=== PATIENT | male | born 1980 | race Caucasian/White ===

== ENCOUNTER 2018-09-27 07:38 | Emergency (ER) | payer OTHER ==
[~2018-09-27] VITALS: Ht 182.9 cm; Wt 104.3 kg
[~2018-09-27 07:38] MED LIST: CRUTCH USE; HYDACE5 PO; NAPR500 PO; NAPR550 PO; OXYACE5T PO; RXCYCL10 PO
[2018-09-27] MEDS ORDERED: IBUP600 PO (09:23)
[2018-09-27] MEDS ORDERED: Percocet 5-3251 EACH PO (09:23)
[2018-09-27] MEDS ORDERED: Cyclobenzaprine5 MG PO (09:23)
== END 2018-09-27 09:41 | disposition home or self-care (01) ==
LOC: ER 07:38
DX: M54.5 Low back pain (principal); Z88.8 Allergy status to other drugs, medicaments and biological substances; Z79.899 Other long term (current) drug therapy
CPT/HCPCS: 72100

== ENCOUNTER 2018-10-21 08:05 | Emergency (ER) | payer OTHER ==
[~2018-10-21] VITALS: Ht 182.9 cm; Wt 104.3 kg
[~2018-10-21 08:05] MED LIST changes: +Cyclobenzaprine5 MG PO; +IBUP600 PO; +Percocet 5-3251 EACH PO
[2018-10-21] MEDS ORDERED: AZIT250 PO (08:29)
[2018-10-21] MEDS ORDERED: SILVER SULFADIA50 G1 TOP (08:30)
== END 2018-10-21 09:44 | disposition home or self-care (01) ==
LOC: ER 08:05
DX: T24.532A Corrosion of first degree of left lower leg, initial encounter (principal); T25.512A Corrosion of first degree of left ankle, initial encounter; T25.511A Corrosion of first degree of right ankle, initial encounter; T24.531A Corrosion of first degree of right lower leg, initial encounter; T65.891A Toxic effect of other specified substances, accidental (unintentional), initial encounter; T32.0 Corrosions involving less than 10% of body surface; Z79.899 Other long term (current) drug therapy
CPT/HCPCS: 16000; 99283-25

== ENCOUNTER 2022-02-10 18:24 | Emergency (ER) | payer OTHER ==
[~2022-02-10] VITALS: Ht 182.9 cm; Wt 108.9 kg
[~2022-02-10 18:24] MED LIST changes: +AZIT250 PO; +SILVER SULFADIA50 G1 TOP
== END 2022-02-10 21:23 | disposition home or self-care (01) ==
LOC: ER 18:24
DX: M79.604 Pain in right leg (principal); Z79.899 Other long term (current) drug therapy
CPT/HCPCS: 93971; 99283-25

== ENCOUNTER 2023-06-07 18:10 | Emergency (ER) | payer OTHER ==
[~2023-06-07] VITALS: Ht 182.9 cm; Wt 104.3 kg
[~2023-06-07 18:10] MED LIST changes: +ACET325 PO; +AMOCLA875 PO; +IBUP400 PO; +PRED20 PO; +VALTREX PO
[2023-06-07 18:47] VITALS: BP 148/82
== END 2023-06-07 20:15 | disposition home or self-care (01) ==
LOC: ER 18:10
DX: M54.10 Radiculopathy, site unspecified (principal); M54.9 Dorsalgia, unspecified; Z79.52 Long term (current) use of systemic steroids; Z88.5 Allergy status to narcotic agent
CPT/HCPCS: 96372; 99283-25; A9270; J1885

== ENCOUNTER 2023-06-09 19:14 | Emergency (ER) | payer OTHER ==
[~2023-06-09] VITALS: Ht 182.9 cm; Wt 108.9 kg
[2023-06-09] MEDS ORDERED: LIDOCAINE1 EACH TOP (22:47)
[2023-06-09] MEDS ORDERED: Robaxin750 MG PO (22:47)
[2023-06-09 23:10] VITALS: BP 132/82
== END 2023-06-09 23:13 | disposition home or self-care (01) ==
LOC: ER 19:14
DX: M25.511 Pain in right shoulder (principal); M54.2 Cervicalgia; M54.9 Dorsalgia, unspecified; Z88.5 Allergy status to narcotic agent; Z79.52 Long term (current) use of systemic steroids; Z79.899 Other long term (current) drug therapy
CPT/HCPCS: 72070; 99283-25; A9270

== ENCOUNTER 2025-06-27 20:29 | Inpatient (IN) | payer OTHER ==
[~2025-06-27] VITALS: Ht 182.9 cm; Wt 118.2 kg
[~2025-06-27 20:29] MED LIST changes: +DOCU100 PO; +LIDOCAINE1 EACH TOP; +OXYC5 PO; +Robaxin750 MG PO; +SULTRIDS PO
[2025-06-27] MEDS ORDERED: Vancomycin HCL 2,000 MG in NS 520 ML IV ONE (21:20)
[2025-06-27] MEDS ORDERED: Cefepime HCl 2,000 MG in NS 100 ML IV ONE (21:20)
[2025-06-27 21:25] LABS: BASOPHILS ABSOLUTE AUTO 0.09 K/mm3 (0.00-0.23); BASOPHILS PERCENT AUTO 1 % (0-2); EOSINOPHILS ABSOLUTE AUTO 0.40 K/mm3 (0.00-0.68); EOSINOPHILS PERCENT AUTO 3 % (0-6); Hematocrit 44.1 % (37.0-53.0); Hemoglobin 14.7 g/dL (13.5-17.5); IMMATURE GRAN ABSOLUTE AUTO 0.05 K/mm3 (0.00-0.10); IMMATURE GRAN PERCENT AUTO 0 % (0-1); LYMPHOCYTES ABSOLUTE AUTO 2.63 K/mm3 (0.84-5.20); LYMPHOCYTES PERCENT AUTO 19 % (21-46); MONOCYTES ABSOLUTE AUTO 1.50 K/mm3 (0.16-1.47); MONOCYTES PERCENT AUTO 11 % (4-13); Mean Corpuscular HGB Conc 33.3 g/dL (31.5-36.5); Mean Corpuscular Volume 94 fL (80-100); NEUTROPHILS ABSOLUTE AUTO 9.51 K/mm3 (1.96-9.15); NEUTROPHILS PERCENT AUTO 67 % (41-73); NRBC ABSOLUTE 0.00 K/mm3 (0.00-0.02); NRBC Auto 0.0 /100 WBC (0.0-0.2); Platelet Count 300 K/mm3 (150-400); RDW Coefficient Variation 12.9 % (11.7-14.2); RDW Standard Deviation 44.2 fL (35.1-46.3)
[2025-06-27] MEDS ORDERED: Ketorolac Tromethamine 15mg Vial IV ONE (21:35)
[2025-06-27 21:44] LABS: Alanine Aminotransfer (ALT/SGP 78.0 U/L (12-78); Albumin, Blood 3.6 g/dL (3.4-5.0); Albumin/Globulin Ratio 0.8 (0.8-1.8); Anion Gap 7.0 mmol/L (3-11); Aspartate Aminotrans (AST/SGOT 44.0 U/L (12-37); Bilirubin, Total 0.5 mg/dL (0.1-1.0); Blood Urea Nitrogen 21.0 mg/dL (8-24); CO2, Blood 25.0 mmol/L (21-32); Calcium, Blood 9.0 mg/dL (8.5-10.1); Chloride, Blood 108.0 mmol/L (98-108); Creatinine, Blood 0.73 mg/dL (0.60-1.20); Globulin, Blood 4.4 g/dL (2.2-4.0); Glucose, Blood 118.0 mg/dL (70-99); Potassium, Blood 4.1 mmol/L (3.5-5.5); Sodium, Blood 136.0 mmol/L (136-145); Total Protein, Blood 8.0 g/dL (6.4-8.2)
[2025-06-27] MEDS ORDERED: NS 1,000 ML IV SCH ×2 (22:15→22:55)
[2025-06-27] MEDS ORDERED: Vancomycin (Pharmacy Consult) IV SCH (22:55)
[2025-06-27] MEDS ORDERED: FLU VACC TS2025-26(6MOS UP)/PF 45 MCG/0.5 ML SYRINGE IM SCH (22:55)
[2025-06-28 00:24] VITALS: BP 138/87
[2025-06-28] MEDS ORDERED: Cefepime HCl 2,000 MG in NS 100 ML IV ONE (00:45)
--- NOTE | 2025-06-28 01:51 | NUR ---
ADMIT NOTE FOR 06/28/25 0010 REPORT WAS RECEIVED FROM THE ER. PT WAS BROUGHT DOWN ON A GURNEY AND WAS ABLE TO AMBULATE TO THE BED. HE WAS ORIENTED TO HIS ROM AND THE STAFF. HES ALERT ORIENTED X 4 ABLE TO VERBALIZE NEEDS. C/O RT FINGER PAIN MEDICATED WITH IBUPROFEN WITH GOOD PAIN RELIEF. FULL ASSESSMENT WAS DONE AND PICTURES WERE TAKEN. DRESSING WAS CHANGED TO HIS RT INDEX FINGER. BED IN LOW POSITION CALL LIGHT IN REACH PT RESTING AT THIS TIME
--- NOTE | 2025-06-28 04:10 | NUR ---
SHIFT SUMMARY PT WAS A NEW ADMIT FROM ER WITH A DX OF RT INDEX FINGER CELULITIS. HE ALSO HAS MULTIPLE TICK BITES TO HIS ABDOMEN, CHEST AND SHOULDER. PT IS A&OX4, ABLE TO VERBALIZE NEEDS AND CALLS APPROPRITALY . VSS ON RA SPO2 >95%. HES A MEDICAL PATIENT AND NO ORDER FOR TELE. ? PAIN TO INDEX FINGER MEDICATED WITH IBUPROFEN WITH GOOD RELIEF. TOLERATING A REGULAR DIET. ABLE TO TAKE MEDS WHOLE IN WATER. INDEPENDENT IN ROOM GETS UP TO TOILET AND USES URINAL. REMAINS ON NS AT 150 X 1 BAG. BED IN LOWEST POSITION,, CALLS APPROPRIATELY AND IS ABLE TO ADVOCATE NEEDS EFFECTIVELY.
[2025-06-28 04:43] VITALS: BP 122/88
[2025-06-28 05:03] LABS: BASOPHILS ABSOLUTE AUTO 0.08 K/mm3 (0.00-0.23); BASOPHILS PERCENT AUTO 1 % (0-2); EOSINOPHILS ABSOLUTE AUTO 0.46 K/mm3 (0.00-0.68); EOSINOPHILS PERCENT AUTO 5 % (0-6); Hematocrit 41.6 % (37.0-53.0); Hemoglobin 13.6 g/dL (13.5-17.5); IMMATURE GRAN ABSOLUTE AUTO 0.02 K/mm3 (0.00-0.10); IMMATURE GRAN PERCENT AUTO 0 % (0-1); LYMPHOCYTES ABSOLUTE AUTO 2.53 K/mm3 (0.84-5.20); LYMPHOCYTES PERCENT AUTO 27 % (21-46); MONOCYTES ABSOLUTE AUTO 1.18 K/mm3 (0.16-1.47); MONOCYTES PERCENT AUTO 13 % (4-13); Mean Corpuscular HGB Conc 32.7 g/dL (31.5-36.5); Mean Corpuscular Volume 97 fL (80-100); NEUTROPHILS ABSOLUTE AUTO 5.04 K/mm3 (1.96-9.15); NEUTROPHILS PERCENT AUTO 54 % (41-73); NRBC ABSOLUTE 0.00 K/mm3 (0.00-0.02); NRBC Auto 0.0 /100 WBC (0.0-0.2); Platelet Count 285 K/mm3 (150-400); RDW Coefficient Variation 12.9 % (11.7-14.2); RDW Standard Deviation 45.7 fL (35.1-46.3)
[2025-06-28 05:26] LABS: Alanine Aminotransfer (ALT/SGP 60.0 U/L (12-78); Albumin, Blood 3.0 g/dL (3.4-5.0); Albumin/Globulin Ratio 0.8 (0.8-1.8); Anion Gap 5.0 mmol/L (3-11); Aspartate Aminotrans (AST/SGOT 30.0 U/L (12-37); Bilirubin, Total 0.6 mg/dL (0.1-1.0); Blood Urea Nitrogen 20.0 mg/dL (8-24); C-REACTIVE PROTEIN, EXT RANGE 2.68 mg/dL (0.000-0.300); CO2, Blood 26.0 mmol/L (21-32); Calcium, Blood 8.2 mg/dL (8.5-10.1); Chloride, Blood 111.0 mmol/L (98-108); Creatinine, Blood 0.63 mg/dL (0.60-1.20); Globulin, Blood 3.7 g/dL (2.2-4.0); Glucose, Blood 95.0 mg/dL (70-99); Potassium, Blood 4.1 mmol/L (3.5-5.5); Sodium, Blood 138.0 mmol/L (136-145); Total Protein, Blood 6.7 g/dL (6.4-8.2)
[2025-06-28 08:33] VITALS: BP 138/83
[2025-06-28] MEDS ORDERED: Enoxaparin 40 MG/0.4 ML SYR SC SCH (09:00)
[2025-06-28] MEDS ORDERED: Lactobacil 2-S.Thermo-Bifido 1 1 Cap PO SCH (09:00)
[2025-06-28] MEDS ORDERED: Cefepime HCl 1,000 MG in NS 100 ML IV SCH (10:05)
[2025-06-28] MEDS ORDERED: NS 1,000 ML IV SCH (10:10)
[2025-06-28 16:28] VITALS: BP 134/88
--- NOTE | 2025-06-28 18:19 | NUR ---
SHIFT SUMMARY PATIENT AOX4 ABLE TO MAKE NEEDS KNOWN. HE DENIES CP OR SOB. HIS VITALS ARE STABLE. HE HAS PAIN IN THE RIGHT HAND INDEX FINGER TREATED PRN PER MAR WOUND DOES HAVE DRAINAGE. HE IS TOLERATING HIS MEALS AND WILL BE NPO AFTER MIDNIGHT FOR PROCEDURE TOMORROW.
[2025-06-28 20:18] VITALS: BP 137/80
[2025-06-29] VITALS (22 sets, daily range): BP systolic 114–150; BP diastolic 63–101
--- NOTE | 2025-06-29 06:26 | NUR ---
SHIFT SUMMARY PATIENT A/OX4. COOPERATIVE WITH ALL CARE. BANDAGE TO R HAND/INDEX FINGER CHANGED X2. NEW PHOTOS IN CHART. MINIMAL PAIN IN HAND. NS INFUSING PER EMAR. KEPT NPO AFTER MIDNIGHT. VOIDING IN URINAL AT BEDSIDE. VSS. PLAN TO GO TO OR TODAY FOR ICISION AND DRAIN. PLAN OF CARE ONGOING.
[2025-06-29] MEDS ORDERED: Midazolam HCl 1MG / ML 2ML Vial ONE (08:45)
[2025-06-29] MEDS ORDERED: FentaNYL Citrate 50 MCG/ML 5 ML Injection ONE (08:45)
[2025-06-29] MEDS ORDERED: CefTRIAXone Sodium 1,000 MG in NS 100 ML IV SCH (09:00)
[2025-06-29 09:37] LABS: BASOPHILS ABSOLUTE AUTO 0.07 K/mm3 (0.00-0.23); BASOPHILS PERCENT AUTO 1 % (0-2); EOSINOPHILS ABSOLUTE AUTO 0.51 K/mm3 (0.00-0.68); EOSINOPHILS PERCENT AUTO 6 % (0-6); Hematocrit 44.9 % (37.0-53.0); Hemoglobin 14.8 g/dL (13.5-17.5); IMMATURE GRAN ABSOLUTE AUTO 0.03 K/mm3 (0.00-0.10); IMMATURE GRAN PERCENT AUTO 0 % (0-1); LYMPHOCYTES ABSOLUTE AUTO 1.80 K/mm3 (0.84-5.20); LYMPHOCYTES PERCENT AUTO 20 % (21-46); MONOCYTES ABSOLUTE AUTO 0.71 K/mm3 (0.16-1.47); MONOCYTES PERCENT AUTO 8 % (4-13); Mean Corpuscular HGB Conc 33.0 g/dL (31.5-36.5); Mean Corpuscular Volume 95 fL (80-100); NEUTROPHILS ABSOLUTE AUTO 5.75 K/mm3 (1.96-9.15); NEUTROPHILS PERCENT AUTO 65 % (41-73); NRBC ABSOLUTE 0.00 K/mm3 (0.00-0.02); NRBC Auto 0.0 /100 WBC (0.0-0.2); Platelet Count 308 K/mm3 (150-400); RDW Coefficient Variation 12.6 % (11.7-14.2); RDW Standard Deviation 43.8 fL (35.1-46.3)
[2025-06-29] MEDS ORDERED: Dexamethasone Sod Phos 10 MG/ML 1ML VIAL ONE (09:48)
[2025-06-29] MEDS ORDERED: Ondansetron HCl 2 MG / ML 2ML Vial ONE ×2 (09:48→10:31)
[2025-06-29 10:00] LABS: Anion Gap 6.0 mmol/L (3-11); Blood Urea Nitrogen 11.0 mg/dL (8-24); CO2, Blood 25.0 mmol/L (21-32); Calcium, Blood 8.6 mg/dL (8.5-10.1); Chloride, Blood 110.0 mmol/L (98-108); Creatinine, Blood 0.66 mg/dL (0.60-1.20); Glucose, Blood 93.0 mg/dL (70-99); Potassium, Blood 3.9 mmol/L (3.5-5.5); Sodium, Blood 137.0 mmol/L (136-145)
[2025-06-29] MEDS ORDERED: FentaNYL Citrate 50 MCG/ML 2 ML Injection IV PRN ×2 (10:05→10:10)
[2025-06-29 10:06] LABS: Vancomycin, Trough 12.2 ug/mL (5.0-10.0)
[2025-06-29] MEDS ORDERED: Ondansetron HCl 2 MG / ML 2ML Vial IV PRN (10:10)
[2025-06-29] MEDS ORDERED: Labetalol HCL 5 MG/ML 4ML Injection (Single Dose) IV PRN (10:10)
[2025-06-29] MEDS ORDERED: Albuterol 2.5 MG/3 ML VIAL INH PRN (10:10)
[2025-06-29] MEDS ORDERED: HYDROmorphone HCl/Pf 1MG SYR IV PRN ×2 (10:10)
[2025-06-29] MEDS ORDERED: FentaNYL Citrate 50 MCG/ML 2 ML Injection ONE (10:31)
--- NOTE | 2025-06-29 18:53 | NUR ---
SHIFT SUMMARY PATIENT AOX4 ABLE TO MAKE NEEDS KNOWN DENIES CP OR SOB. HIS VITALS ARE STABLE AND IS TOLERATING HIS MEALS POST I AND D TODAY. HE WAS HAVING SEVERE PAIN POST PROCEDURE AND THE IBUPROFEN WAS NOT EFFECTIVE SO PATIENT WANTED THE STRONGER MEDS HE GOT IN PACU HE DID GET IV NARCOTICS IN PACU ALTHOUGH HIS ALLERGIES SAY HE IS HYPERSENSITIVE TO NARCOTICS/DILAUDID. HE TOLERATED IT IN PACU AND INFORMED THE HOSPITALIST THAT HE WANTED THOSE STRONGER MEDS AND INFORMED HIM THE PHARMACY WANTED TO MAKE SURE THAT THE DILAUDID WAS OK DUE TO THE PREVIOUS SENSITIVITY. THE PATIENT STATED HE WOULD BE OK BECAUSE WHEN HE HAD THE SENSITIVITY BEFORE HE JUST GOT TO MANY NARCOTICS IN A ROW. THE PATIENT DID RECEIVE PO DILAUDID WHICH DID HELP WITH HIS PAIN AND HE MAINTAINED THERAPUTIC O2 SATS AND RESP RATE. HIS POST OP DRESSING IS CLEAN DRY INTACT AND CAP REFILL IS LESS THAN 3 SECS.
--- NOTE | 2025-06-29 20:35 | NUR ---
TRANSFER NOTE THIS RN ASSUMED CARE OF PATIENT AT 1900. PT A&O X4. ELEVATED RT HAND/INDEX FINGER ON CHEST. REPORTS GOOD PAIN CONTROL AT THIS TIME. DRESSING C/D/I. VSS. NO TELE. AT BEDSIDE DURING REPORT. REPORTED BEING UPSET THAT HE WAS GIVEN FENTANYL/DILAUDID FOR PROCEDURE/PAIN. STATING THAT HE IS NOT TO BE GIVEN ANY FURTHER NARCOTICS. SHE IS ASKING DAYSHIFT RN AND THIS RN THAT IF PAIN INCREASES DURING NOC SHIFT THAT HE IS GIVEN MOTRIN OR TRAMADOL. CONFIRMED THAT ALLERGY FOR DILAUDID LISTED D/T PREVIOUS SENSITIVITY REACTION THAT OCCURRED X1 YEAR AGO. PT TO BE TRANSFERRED TO 313. REPORT GIVEN TO MARIE SALINAS ON MEDICAL FLOOR. INFORMATION RELAYED TO RN REGARDING 'S REQUEST REGARDING PAIN MANAGEMENT.
[2025-06-30] MEDS ORDERED: Ketorolac Tromethamine 15mg Vial IV PRN (00:40)
--- NOTE | 2025-06-30 01:05 | NUR ---
PT CALLED TO VERBALIZE PAIN AND SWELLING IN THE LEFT HAND AND WRIST. THIS NURSE ASSESSED PT AND PT IV INFILTRATED. VANCOMYCIN WS RUNNING, PHARMACY AND PHYSICIAN ALERTED AND HYALURONIDASE ORDERED. HOT COMPRESS APPLIED, PT MEDICATED FOR PAIN PER EMAR. WILL CONTINUE TO MONITOR.
[2025-06-30 04:05] VITALS: BP 119/65
--- NOTE | 2025-06-30 07:07 | NUR ---
SHIFT SUMMARY PT A&OX4 AND ANSWERS QUESTIONS APPROPRIATELY. PT TRANSFERRED TO PCU VIA W/C. PT RECEIVED VANCOMYCIN, USP THROUGH THE IV INFILTRATED. PT WOKE UP AND CALLED COMPLAINING OF SWELLING AND PAIN IN L HAND. ASSESSMENT FOUND INFILTRATION, CALL, MEDS ORDERED AND ADMINISTERED. PT STILL VOICED INCREASED SWELLING AND CALLED, PHARMACY CALLED. ANOTHER DOSE ORDERED, DAY SHIFT AWARE OF SECOND DOSE. VSS, NO COMPLAINTS OF CP/PRESSURE OR SOB. PT SPENT MOST OF SHIFT RESTING IN BED. FALL PRECAUTIONS IN PLACE AND CALL LIGHT IN REACH.
[2025-06-30 07:45] VITALS: BP 151/90
[2025-06-30] MEDS ORDERED: VISBIOME 112.51 EACH PO (11:24)
[2025-06-30] MEDS ORDERED: CEPH500 PO (11:25)
== END 2025-06-30 13:10 | disposition home or self-care (01) | DRG 603 ==
LOC: ER 20:29 → MEDS 20:30 → PCU 20:30 → MEDS 06-28 16:05 → ENPENDDIS 06-30 11:02 → MEDS 06-30 13:10
PROVIDERS: Orthopaedic Surgery; Physician Assistant; ADMIT Student in an Organized Health Care Education/Training Program
PROC: 3E03329 Introduction of Other Anti-infective into Peripheral Vein, Percutaneous Approach (ICD-10-PCS; 2025-06-27)
PROC: 0HDFXZZ Extraction of Right Hand Skin, External Approach (ICD-10-PCS; principal; 2025-06-29 09:30)
DX: L02.511 Cutaneous abscess of right hand (principal); B95.61 Methicillin susceptible Staphylococcus aureus infection as the cause of diseases classified elsewhere; L03.011 Cellulitis of right finger; T14.8XXA Other injury of unspecified body region, initial encounter; W57.XXXA Bitten or stung by nonvenomous insect and other nonvenomous arthropods, initial encounter; Z88.5 Allergy status to narcotic agent; Z98.1 Arthrodesis status
CPT/HCPCS: 36415; 73130; 73201; 80048; 80053; 80202; 83605; 85025; 85651; 86140; 87040; 87070; 87075; 87077; 87147; 87186; 87205; 94760; 96365; 96366; 96372; 96375; 96376; 99285-25; A9270; G0378; J0692; J0696; J1100; J1650; J1885; J2250; J2405; J2704; J3010; J3373; J3470; J7030; J7040; Q9967